=== PATIENT | female | born 1950 ===

== ENCOUNTER 2017-02-22 12:02 | Emergency (ER) | payer BC ==
[~2017-02-22] VITALS: Ht 165.1 cm; Wt 59.0 kg
[2017-02-22] MEDS ORDERED: FETZIMA20 MG (12:26)
[2017-02-22] MEDS ORDERED: LAMICTAL25 MG (12:26)
== END 2017-02-22 16:10 | disposition home or self-care (01) ==
LOC: ER 12:02
DX: R42 Dizziness and giddiness (principal)